=== PATIENT | male | born 1980 | race American Indian/Alaskan Native ===

== ENCOUNTER 2021-10-11 11:28 | Emergency (ER) | payer SELFPAY ==
[2021-10-11 11:31] VITALS: BP 127/80
[2021-10-11] MEDS ORDERED: KETOROLAC 10 MG TAB PO ONE (14:17)
[2021-10-11] MEDS ORDERED: oxyCODONE /ACETAMINOPHEN 5-325MG TAB PO ONE (14:17)
[2021-10-11] MEDS ORDERED: CLINDAMYCIN 150 MG CAP PO ONE (15:00)
--- NOTE | 2021-10-11 15:01 | XRay Report ---
XR tibia fibula 2V RT INDICATION: pain, swelling, abscess, hx of hardware in place COMPARISON: None. FINDINGS: Prior postoperative changes for fixation of the tibia with healed tibial and fibular fractures. No co rtical lysis. No perihardware lucency. Hardware is intact. No periprosthetic fracture. IMPRESSION No radiographic evidence of osteomyelitis. Signer Name: Jason Lee MD Signed: 10/11/2021 2:57 PM Workstation Name: [facility] [employer]
--- NOTE | 2021-10-11 15:33 | Emergency Department Report ---
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 He states that he noticed the abscess 2 days ago and it has been getting worse since then. He states that he noted small amount of purulent drainage from area earlier today. He denies fever, nausea, vomiting, and injury, he states that he has a history of fracture to right tibia for which she had hardware placed. He states that he is concerned that hardware may be out of place. MD complaint: abscess/boil -: Gradual, days(s) (To) Tetanus Up to Date: yes Location: [facility] Severity: severe Severity scale (0 -10): 10 Quality: aching, other (Pressure) Consistency: constant Worsens with: palpation, movement, other (Standing) Associated symptoms: denies other symptoms Treatments Prior to Arrival: none - Related Data Previous Rx's Medication Instructions Recorded Last Taken Type Clindamycin [Clindamycin CAP] 300 mg PO Q6HR 10 Days #80 capsule 10/11/21 Unknown Rx Ketorolac [Toradol] 10 mg PO Q6H PRN #10 tab 10/11/21 Unknown Rx Allergies Allergy/AdvReac Type Severity Reaction Status Date / Time No Known Allergies Allergy Verified 10/11/21 11:31 Abscess Boil HPI - HPI Chief Complaint: Skin/Abscess/Foreign Body Stated Complaint: LEG PAIN/ABCESS Time Seen by Provider: 10/11/21 14:05 Home Medications: Previous Rx's Medication Instructions Recorded Last Taken Type Clindamycin [Clindamycin CAP] 300 mg PO Q6HR 10 Days #80 capsule 10/11/21 Unknown Rx Ketorolac [Toradol] 10 mg PO Q6H PRN #10 tab 10/11/21 Unknown Rx Allergies/Adverse Reactions: Allergies Allergy/AdvReac Type Severity Reaction Status Date / Time No Known Allergies Allergy Verified 10/11/21 11:31 ED Review of Systems ROS: Stated complaint: LEG PAIN/ABCESS Other details as noted in HPI Comment: All other systems reviewed and negative Constitutional: denies: chills, fever Eyes: denies: eye pain, eye discharge ENT: denies: ear pain, throat pain Respiratory: denies: cough, shortness of breath, SOB with exertion, SOB at rest Cardiovascular: denies: chest pain, palpitations, dyspnea on exertion, orthopnea, edema, syncope, paroxysmal nocturnal dyspnea Endocrine: no symptoms reported Gastrointestinal: denies: abdominal pain, nausea, vomiting Genitourinary: denies: urgency, dysuria Musculoskeletal: denies: back pain Skin: denies: rash, lesions Neurological: denies: headache, weakness Psychiatric: denies: anxiety, depression Hematological/Lymphatic: denies: easy bleeding, easy bruising ED Past Medical Hx - Medications Home Medications: Home Medications Medication Instructions Recorded Confirmed Last Taken Type Clindamycin [Clindamycin CAP] 300 mg PO Q6HR 10 Days #80 capsule 10/11/21 Unknown Rx Ketorolac [Toradol] 10 mg PO Q6H PRN #10 tab 10/11/21 Unknown Rx ED Physical Exam - General Limitations: No Limitations General appearance: alert, in no apparent distress - Head Head exam: Present: atraumatic, normocephalic - Eye Eye exam: Present: normal appearance. Absent: conjunctival injection - Neck Neck exam: Present: normal inspection - Respiratory Respiratory exam: Absent: respiratory distress - Cardiovascular Cardiovascular Exam: Present: regular rate - GI/Abdominal GI/Abdominal exam: Absent: distended - Expanded Lower Extremity Exam Right Lower Leg exam: Present: tenderness, swelling, erythema, Mary's sign. Absent: normal inspection (Abscess noted top portion of the leg 6 cm x 6 cm), abrasion, laceration, ecchymosis, deformity Neuro vascular tendon exam: Absent: no vascular compromise, pulse deficit, abnormal cap refill, motor deficit, sensory deficit, extremity cold to touch, pallor Gait: Positive: observed and limited by pain - Back Exam Back exam: Present: normal inspection - Neurological Exam Neurological exam: Present: alert, oriented X3 - Psychiatric Psychiatric exam: Present: normal affect, normal mood - Skin Skin exam: Present: warm, dry, intact, normal color ED Course Vital Signs 10/11/21 10/11/21 10/11/21 11:30 14:49 14:50 Temperature 97.6 F Pulse Rate 79 Respiratory 79 H 16 16 Rate Blood Pressure 127/80 [Left] O2 Sat by Pulse 96 Oximetry - I & D Right Lower Anterior Leg Site: Anterior right lower leg Blade Size: 11 I & D Procedure: betadine prep Progress: Area was cleaned with Betadine. Patient refused numbing stating that he gets this done so much that he would rather just go without any anesthesia. After cleaning, about 1 cm incision was placed in the center fluctuant part of the abscess. Noted to have moderate amounts of purulent drainage. Area was expressed for more serosanguineous drainage. No drainage or wound packing placed. Wound was left open and covered with gauze dressing and Kerlix. Patient tolerated well. ED Medical Decision Making - Radiology Data Radiology results: report reviewed, image reviewed Right tib-fib x-ray FINDINGS: Prior postoperative changes for fixation of the tibia with healed tibial and fibular fractures. No cortical lysis. No perihardware lucency. Hardware is intact. No periprosthetic fracture. IMPRESSION No radiographic evidence of osteomyelitis. 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 He states that he noticed the abscess 2 days ago and it has been getting worse since then. He states that he noted small amount of purulent drainage from area earlier today. He denies fever, nausea, vomiting, and injury, he states that he has a history of fracture to right tibia for which she had hardware placed. He states that he is concerned that hardware may be out of place. No abnormalities noted to right lower leg x-ray. Incision and drainage performed on abscess. Patient will be treated with 10-day course of clindamycin 300 mg 4 times a day along with Toradol as needed for pain and swelling. He was advised to keep wound clean and dry and monitor for worsening symptoms. He was advised to follow-up with primary care provider or in the ED if no improvement or worsening symptoms. He verbalized understanding of and agreement with plan of care. Critical care attestation.: If time is entered above; I have spent that time in minutes in the direct care of this critically ill patient, excluding procedure time. ED Disposition Clinical Impression: Abscess of right lower leg Disposition: HOME / SELF CARE / HOMELESS Is pt being admited?: No Does the pt Need Aspirin: No Condition: Stable Instructions: Skin Abscess, [id number] Additional Instructions: Take medications as prescribed. Follow-up with primary care provider if no improvement or worsening symptoms. Prescriptions: Clindamycin [Clindamycin CAP] 300 mg PO Q6HR 10 Days #80 capsule Ketorolac [Toradol] 10 mg PO Q6H PRN #10 tab PRN Reason: Pain Referrals: AZEEM CAMPO MD [Primary Care Provider] - 3-5 Days Forms: Work/School Release Form(ED) Time of Disposition: 15:33
== END 2021-10-11 15:33 | disposition home or self-care (01) ==
LOC: ED 11:28
DX: L02.415 Cutaneous abscess of right lower limb (principal)
CPT/HCPCS: 99283; 99284